=== PATIENT | female | born 1955 | race African-American/Black ===

== ENCOUNTER 2019-08-11 13:11 | Outpatient (CLI) | payer OTHER, SELFPAY ==
--- NOTE | ~2019-08-11 | XR_ITS ---
EXAMINATION: XR knee LT min 4V DATE: 08/11/2019 13:49 INDICATION: Posterior left knee pain. TECHNIQUE: 4 views of left knee were obtained. COMPARISON: None. FINDINGS: Bone alignment is normal. No fracture. There is moderate osteoarthritis of medial compartme nt and mild osteoarthritis of lateral and patellofemoral compartments. No knee joint effusion. IMPRESSION: 1. Moderate left knee osteoarthritis. Reviewed, dictated and finalized at location A. STRIAL TRAINING SPECIALIST
== END 2019-08-11 13:12 | disposition home or self-care (01) ==
DX: M25.562 Pain in left knee (principal); M17.12 Unilateral primary osteoarthritis, left knee
CPT/HCPCS: 73564

== ENCOUNTER 2020-01-27 13:03 | Outpatient (CLI) | payer OTHER, SELFPAY ==
--- NOTE | ~2020-01-27 | XR_ITS ---
XR chest 2V DATE: 01/27/2020 13:27 INDICATION: Chest pain, shortness of breath TECHNIQUE: PA and lateral views COMPARISON: 05/11/2015 PA and lateral chest FINDINGS: Normal heart size. Mild aortic tortuosity. No hilar or mediastinal enlargement. No pulmonary infiltrate or consolidation, pleural effusion or pulmonary vascular congestion or pneumo thorax is detected. Surgical clips overlying the upper abdomen are noted on the lateral view, likely due to cholecystecto my. Osteopenia. IMPRESSION: No active cardiopulmonary disease Reviewed, dictated and finalized at location A.
== END 2020-01-27 13:04 | disposition home or self-care (01) ==
PROVIDERS: PCP Family Medicine; Visit Provider Family Medicine
DX: R06.00 Dyspnea, unspecified (principal); R07.9 Chest pain, unspecified; R53.83 Other fatigue; R94.31 Abnormal electrocardiogram [ECG] [EKG]
CPT/HCPCS: 71046

== ENCOUNTER 2020-03-04 13:19 | Outpatient (CLI) | payer OTHER, SELFPAY ==
--- NOTE | 2020-03-04 13:35 | ECHO_ITS ---
Patient Info Name: Julia Martinez Age: 65 years : 1955 Gender: Female Ht: 62 in Wt: 210 lbs BSA: 2.09 m2 HR: 90 bpm BP: 141 / 93 mmHg Technical Quality: Fair Exam Date: 03/04/2020 1:41 PM Exam Location: [facility] Patient Status: Outpatient Admit Date: 03/04/2020 Staff Ordering Physician: Gordon Sarah DO Assembly Line Leader: Zoya Singer RDCS Attending Provider: Gordon Sarah DO Referring Physician: Tyrel BRO; Exam Type: CA echo doppler color flow Study Info Indications R06.00 - Dyspnea, unspecified Complete two-dimensional, color flow and Doppler transthoracic echocardiogram is performed. Summary 1. Complete two-dimensional, color flow and Doppler transthoracic echocardiogram is performed. 2. Left ventricular chamber dimension is normal. 3. Left ventricular systolic function is normal, estimated at 60-65%. 4. The left ventricular diastolic function is grade I diastolic dysfunction. 5. E/e' 12 is mildly elevated. 6. Global longitudinal strain is abnormal at -14.4%. 7. There is moderate aortic valve sclerosis. 8. No pulmonary hypertension, estimated pulmonary arterial systolic pressure is 23 mmHg. Left Ventricle E/e' 12 is mildly elevated. Global longitudinal strain is abnormal at -14.4%. Left ventricular chamber dimension is normal. Left ventricular systolic function is normal, estimated at 60-65%. The left ventricular diastolic function is grade I diastolic dysfunction. Right Ventricle Right ventricular chamber dimension is normal. Right ventricular systolic function is normal. Left Atria Left atrial chamber dimension is normal. Right Atria Right atrial chamber dimension is normal. Aortic Valve The aortic valve is trileaflet. There is moderate aortic valve sclerosis. There is no aortic valve stenosis. There is no aortic valve regurgitation. Pulmonic Valve There is no pulmonic regurgitation. Mitral Valve There is no mitral valve stenosis. There is no mitral valve regurgitation. Tricuspid Valve There is no tricuspid valve regurgitation. No pulmonary hypertension, estimated pulmonary arterial systolic pressure is 23 mmHg. Pericardium/Pleural There is no pericardial effusion. Inferior Vena Cava Normal inferior vena cava with >50% collapse upon inspiration consistent with normal right atrial pressure, 5 mmHg. Aorta The aortic root size at the sinus of Valsalva is normal. Left Ventricular Outflow Tract Name Value Normal LVOT 2D LVOT Diameter 1.9 cm LVOT Doppler LVOT Peak Gradient 6 mmHg LVOT Mean Gradient 3 mmHg LVOT VTI 21 cm LVOT VTI/AV VTI Ratio 0.9 LVOT Stroke Volume 58 ml LVOT CO 5.2 l/min LVOT CI 2.5 l/min/m2 Pulmonic Valve Name Value Normal APO
== END 2020-03-04 13:20 | disposition home or self-care (01) ==
PROVIDERS: PCP Family Medicine; Visit Provider Internal Medicine Cardiovascular Disease
DX: R06.00 Dyspnea, unspecified (principal); I35.8 Other nonrheumatic aortic valve disorders
CPT/HCPCS: 93306

== ENCOUNTER 2020-06-29 08:45 | Outpatient (CLI) | payer OTHER, SELFPAY ==
[2020-06-29 18:51] LABS: Basophils Absolute Auto 0.1 K/mm3 (0.0-0.1); Basophils Percent Auto 0.6 % (0.2-1.2); Eosinophils Absolute Auto 0.3 K/mm3 (0-0.3); Eosinophils Percent Auto 3.4 % (0-4.4); Hematocrit 42.8 % (37.0-47.0); Hemoglobin 12.6 g/dL (12.0-15.0); Immature Granulocyte Absolute 0.03 K/mm3 (0.00-0.031); Immature Granulocyte Percent A 0.3 % (0-0.5); Lymphocytes Absolute Auto 2.51 K/mm3 (0.9-3.2); Lymphocytes Percent Auto 28.7 % (18.3-44.2); Mean Corpuscular HGB Conc 29.4 g/dl (32-36); Mean Corpuscular Hemoglobin 23.7 pg (26-34); Mean Corpuscular Volume 80.6 fl (80-100); Monocytes Absolute Auto 0.7 K/mm3 (0.1-0.6); Monocytes Percent Auto 7.8 % (2.6-8.5); Neutrophils Absolute Auto 5.2 K/mm3 (1.3-6.7); Neutrophils Percent Auto 59.2 % (45.5-73.1); Platelet Count Result 309 k/mm3 (150-375); Red Blood Count 5.31 M/mm3 (4.2-5.4); White Blood Count 8.7 K/mm3 (4.5-10.0)
[2020-06-29 19:00] LABS: Alanine Aminotransferase 23 U/L (4-35); Albumin Level 4.1 g/dL (3.5-5.1); Alkaline Phosphatase 88 U/L (38-126); Anion Gap 5 mmol/L (8-16); Aspartate Amino Transferase 26 U/L (14-36); Bilirubin,Total 0.4 mg/dL (0.2-1.3); Blood Urea Nitrogen 18 mg/dL (7-17); Calcium 9.5 mg/dL (8.4-10.2); Carbon Dioxide 31 mmol/L (22-30); Chloride 104 mmol/L (98-107); Cholesterol 226 mg/dL (0-200); Estimated Glomerular Filt Rate > 60; Glucose 109 mg/dL (65-105); HDL Direct 73 mg/dL; Iron 31 ug/dL (37-170); Potassium 4.3 mmol/L (3.4-5.0); Sodium 140 mmol/L (137-145); Triglycerides 253 mg/dL (<150)
[2020-06-29 19:01] LABS: Cholesterol 225 mg/dL (0-200); HDL Direct 74 mg/dL; Triglycerides 252 mg/dL (<150)
[2020-06-29 19:07] LABS: Hypochromasia 2+ (NORMAL); Platelet Estimate Adequate (Adequate)
[2020-06-29 19:09] LABS: NT Pro B Type Natriuretic Pept 28 PG/ML (5-100); Ovalocytes 1+ (NORMAL); Percent Iron Saturation 6 % (20-50); Target Cells 1+ (NORMAL)
[2020-06-29 19:11] LABS: LDL Cholesterol Direct 33 mg/dL
[2020-06-29 19:12] LABS: LDL Cholesterol Direct 34 mg/dL
[2020-06-29 19:50] LABS: Vitamin D 25 Hydroxy 40.6 ng/mL
[2020-07-01 19:40] LABS: Erythropoietin (EPO) 22.8 mIU/mL (2.6-18.5)
[2020-07-04 08:17] LABS: Triiodothyronine T3 Free 2.5 pg/mL (2.3-4.2)
[2020-07-10 22:41] LABS: Thyroid Peroxidase Antibodies <1 IU/mL (<9)
== END 2020-06-29 08:46 | disposition home or self-care (01) ==
LOC: ANHBWCLAB 08:46
PROVIDERS: Internal Medicine Cardiovascular Disease; PCP Family Medicine; Visit Provider Family Medicine
DX: D49.7 Neoplasm of unspecified behavior of endocrine glands and other parts of nervous system (principal); E07.9 Disorder of thyroid, unspecified; R42 Dizziness and giddiness; Z82.62 Family history of osteoporosis; G25.81 Restless legs syndrome; D64.9 Anemia, unspecified; E16.2 Hypoglycemia, unspecified; E78.5 Hyperlipidemia, unspecified; G47.10 Hypersomnia, unspecified; I10 Essential (primary) hypertension; R89.9 Unspecified abnormal finding in specimens from other organs, systems and tissues; Z79.899 Other long term (current) drug therapy
CPT/HCPCS: 36415; 80053; 80061; 82306; 82668; 82728; 83540; 83550; 83880; 84443; 84481; 85025; 86376

== ENCOUNTER 2020-07-01 12:11 | Outpatient (CLI) | payer OTHER, SELFPAY ==
--- NOTE | ~2020-07-01 | MR_ITS ---
EXAMINATION: MR brain/brain stem wo/w con DATE: 07/01/2020 14:10 INDICATION: Benign neoplasm of pituitary gland. TECHNIQUE: Magnetic resonance imaging (MRI) of the brain and brainstem was performed without and with 20 mL MultiHance intravenous contrast. Whole-brain sequences included sagittal T1-weighted FSE, axia l diffusion-weighted FS EPI, axial T2*-weighted GRE, axial T2-weighted FLAIR Propeller, and axial T2- weighted Propeller. Small wjiui-ko-vnes sequences included sagittal and coronal T1-weighted FSE cente red at the pituitary. Postcontrast sequences included small [id number]-iz-akcr coronal T1-weighted FSE in a time course and sagittal T1-weighted FSE and whole-brain axial T1-weighted FSE. Apparent diffusion coefficient (ADC) maps were created. COMPARISON: Brain MRI 10/27/2009 FINDINGS: The pituitary is normal in size with height of 3 mm and concave superior margin. There is n o intracranial hemorrhage or acute infarction. There is an 8 x 6 x 5 mm enhancing extra-axial mass wi th dural tails at the planum sphenoidale, consistent with a meningioma. The ventricles are normal in size. The mastoid air cells are normal. There is mild mucosal thickening in the paranasal sinuses. Th ere are likely changes of ocular lens replacement surgeries. IMPRESSION: 1. 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 2. No pituitary tumor recurrence. Reviewed, dictated and finalized at location A. ANOTHERAPIST
== END 2020-07-01 12:12 | disposition home or self-care (01) ==
LOC: ANHIMG 12:26
PROVIDERS: PCP Family Medicine; Visit Provider Family Medicine
DX: D35.2 Benign neoplasm of pituitary gland (principal); R51.9 Headache, unspecified
CPT/HCPCS: 70553; A9577

== ENCOUNTER 2021-01-18 13:38 | Emergency (ER) | payer MEDICARE, SELFPAY ==
--- NOTE | ~2021-01-18 | CT_ITS ---
EXAMINATION: CTA chest PE protocol DATE: 01/18/2021 16:55 INDICATION: Shortness of breath and tachycardia TECHNIQUE: Computed tomography angiography (CTA) of the chest was performed with 100 mL Omnipaque-350 intravenous contrast timed to evaluate the pulmonary arteries. Coronal maximum intensity projection 3D-reconstructions were created by the technologist. The dose-length product (DLP) was 910.49 mGy-cm. Automated exposure control and iterative reconstruction technique were employed. COMPARISON: 07/04/2011 FINDINGS: The pulmonary arteries are well-opacified. No pulmonary embolism is identified. There is mi ld emphysema. The lungs are free of acute opacities. There is no pleural effusion or pneumothorax. No pathologically enlarged thoracic lymph nodes are identified. The heart size is normal. There is mild thoracic spondylosis. The gallbladder is surgically absent. IMPRESSION: 1. No pulmonary embolism or acute cardiopulmonary abnormality. 2. Mild emphysema. Reviewed, dictated and finalized at location A.
--- NOTE | ~2021-01-18 | XR_ITS ---
EXAMINATION: XR chest 2V DATE: 01/18/2021 14:40 INDICATION: Heart palpitations, controlled hypertension TECHNIQUE: AP and lateral views of the chest are obtained. COMPARISON: 01/27/2020 FINDINGS: The lungs are free of acute opacities. There is no pleural effusion or pneumothorax. The ca rdiomediastinal silhouette is normal. There is moderate thoracic spondylosis. IMPRESSION: 1. No acute cardiopulmonary abnormality. Reviewed, dictated and finalized at location A.
--- NOTE | 2021-01-18 13:42 | ECG_ITS ---
Measurements Intervals [place] Rate: 102 P: 18 OK: 136 QRS: 45 QRSD: 87 T: 8 QT: 311 QTc: 405 Interpretive Statements SINUS TACHYCARDIA MINIMAL Q WAVES- INFERIOR LEADS BORDERLINE ST-T WAVE ABNORMALITY- DIFFUSE LEADS BASELINE WANDER- I, II BORDERLINE ECG Electronically Signed On 01-18-2021 14:10:05 CDT by Gordon Sarah D.O.
[2021-01-18 13:52] VITALS: BP 145/84; PULSE 101; RESP 16; TEMP 36.8; O2SAT 99
[2021-01-18 14:22] LABS: Basophils Percent Auto 0.5 % (0.2-1.2); Eosinophils Absolute Auto 0.2 K/mm3 (0-0.3); Eosinophils Percent Auto 2.6 % (0-4.4); Hematocrit 43.8 % (37.0-47.0); Hemoglobin 13.4 g/dL (12.0-15.0); Immature Granulocyte Absolute 0.03 K/mm3 (0.00-0.031); Immature Granulocyte Percent A 0.3 % (0-0.5); Lymphocytes Absolute Auto 2.46 K/mm3 (0.9-3.2); Lymphocytes Percent Auto 28.6 % (18.3-44.2); Mean Corpuscular HGB Conc 30.6 g/dl (32-36); Mean Corpuscular Hemoglobin 24.7 pg (26-34); Mean Corpuscular Volume 80.7 fl (80-100); Monocytes Absolute Auto 0.6 K/mm3 (0.1-0.6); Monocytes Percent Auto 7.4 % (2.6-8.5); Neutrophils Absolute Auto 5.2 K/mm3 (1.3-6.7); Neutrophils Percent Auto 60.6 % (45.5-73.1); Platelet Count Result 294 k/mm3 (150-375); Red Blood Count 5.43 M/mm3 (4.2-5.4); Red Cell Distribution Width 19.3 % (11.5-14.5); White Blood Count 8.6 K/mm3 (4.5-10.0)
[2021-01-18 14:32] LABS: INR 0.9; Prothrombin Time 11.8 Seconds (11.1-14.7)
[2021-01-18 15:04] LABS: Troponin I < 0.012 ng/mL (0.000-0.034)
--- NOTE | 2021-01-18 16:04 | ED.ARRPALP ---
HPI - Arrhythmia/Palpitations General Chief Complaint: Arrhythmia/Palpitations Stated Complaint: Feels like heart is flipping x 2 weeks Time Seen by Provider: 01/18/21 14:35 History of Present Illness HPI narrative: Patient presents with concerns for palpitation. She reports symptoms been present for the past couple weeks she describes the sensation of her heart is in her throat. She is unable to identify any clear aggravating or alleviating factors. Symptoms appear to come on randomly last for a few seconds and resolved. She denies any associated nausea, vomiting, dyspnea, chest pain Related Data Home Medications Medication Instructions Recorded Confirmed cetirizine [Zyrtec] 10 mg PO DAILY 05/05/19 09/27/20 hydrochlorothiazide 25 mg PO QAM 05/05/19 09/27/20 meclizine 25 mg PO DAILY 05/05/19 09/27/20 omeprazole 20 mg PO DAILY 05/05/19 09/27/20 carboxymethylcellulose sodium 1 % 1 drop EACH EYE BID 12/26/19 09/27/20 eye liquid gel drops omega-3 fatty acids 1,000 mg 1,000 mg PO BID 02/02/20 09/27/20 capsule cholecalciferol (vitamin D3) 50 50 mcg PO DAILY 02/06/20 09/27/20 mcg (2,000 unit) capsule multivitamin 1 tablet PO DAILY 02/06/20 09/27/20 Allergies Allergy/AdvReac Type Severity Reaction Status Date / Time bismuth subsalicylate Allergy Unknown HIVES Verified 01/18/21 13:58 codeine Allergy Unknown Itching Verified 01/18/21 13:58 fenofibrate Allergy Unknown felt Verified 01/18/21 13:58 strange after taking Penicillins Allergy Unknown Anaphylaxis Verified 01/18/21 13:58 Gsswwbc-Brg-Zms Reductase Allergy Unknown MUSC ACHES Verified 01/18/21 13:58 Inhibitor tiotropium Allergy Unknown eye itching Verified 01/18/21 13:58 venlafaxine Allergy Unknown Difficulty Verified 01/18/21 13:58 Breathing BUSPIRONE HCL Allergy Unknown PALPITATION Uncoded 09/27/20 16:20 S CHOLINE FENOFIBRATE Allergy Unknown FELT Uncoded 09/27/20 16:20 BAD , MUSCLE ACHES, DISCOMFORT Review of Systems Review of Systems: CONSTITUTIONAL: Denies fever, chills, or sweats. EYES: Denies visual changes, redness, or discharge. ENT: Denies rhinorrhea, congestion, sore throat, or otalgia. CARDIOVASCULAR: Denies chest pain, or edema. RESPIRATORY: Denies cough or dyspnea. GASTROINTESTINAL: Denies abdominal pain, nausea, vomiting, or diarrhea. GENITOURINARY: Denies dysuria or hematuria. SKIN: Denies rash or itching. MUSCULOSKELETAL: Denies back pain, joint pain, or myalgia. NEUROLOGIC: Denies headache, numbness, dizziness, or weakness. PSYCHIATRIC: Denies anxiety or depression. All systems reviewed & are unremarkable except as noted in HPI and below PMFSH Past Medical History Medical History (Updated 01/18/21 @ 17:32 by Henrry Vergara MD) COPD (chronic obstructive pulmonary disease) Ovarian cyst Pituitary tumor Thyroid disease Vertigo Surgical History Surgical History H/O toe surgery H/O tubal ligation History of appendectomy Hx of cholecystectomy Family History Family History Sibling Family history of hypothyroidism Mother Family history of diabetes mellitus in first degree relative Social History Social History Smoking packs per day: 0.5 Smoking cigarettes per day: 10.0 Years smoked: 4 Smoking pack-years: 2.00 Smoking status: Former smoker Smoking end date: 06/18/10 Alcohol intake: former Substance use type: does not use Exam Narrative: GENERAL: Well-appearing, well-nourished, and in no acute distress. HEAD: Normocephalic, atraumatic. EYES: PERRLA and EOMI. ENT: Nares clear, no rhinorrhea or epistaxis. Mucous membranes moist. NECK: Supple. No adenopathy or masses. No JVD CHEST: Clear to auscultation. No respiratory distress. No wheezes rales or rhonchi HEART: Regular rate and rhythm. No murmur heard. Marta
[2021-01-18 16:24] LABS: Thyroid Stimulating Hormone 0.621 uIU/mL (0.465-4.680)
[2021-01-18 16:36] LABS: Alanine Aminotransferase 21 U/L (4-35); Albumin Level 4.4 g/dL (3.5-5.1); Alkaline Phosphatase 71 U/L (38-126); Anion Gap 11 mmol/L (8-16); Aspartate Amino Transferase 31 U/L (14-36); Bilirubin,Total 0.6 mg/dL (0.2-1.3); Blood Urea Nitrogen 24 mg/dL (7-17); Carbon Dioxide 27 mmol/L (22-30); Chloride 100 mmol/L (98-107); Estimated CRCL calculation 56 ml/min; Estimated Glomerular Filt Rate > 60; Glucose 101 mg/dL (65-110); Potassium 3.8 mmol/L (3.4-5.0); Sodium 138 mmol/L (137-145)
[2021-01-18 16:42] LABS: NT Pro B Type Natriuretic Pept 19 pg/mL (5-100)
[2021-01-18 17:15] VITALS: BP 120/78; PULSE 95; RESP 13; O2SAT 98
[2021-01-18 17:45] LABS: Troponin I < 0.012 ng/mL (0.000-0.034)
[2021-01-18 17:56] VITALS: BP 120/78; PULSE 93; RESP 16; TEMP 36.7; O2SAT 100
== END 2021-01-18 17:57 | disposition home or self-care (01) ==
PROVIDERS: Emergency Medicine; Emergency Provider Emergency Medicine; PCP Nurse Practitioner Family
DX: R00.2 Palpitations (principal); J43.9 Emphysema, unspecified; E07.9 Disorder of thyroid, unspecified; R00.0 Tachycardia, unspecified; Z87.891 Personal history of nicotine dependence; R94.31 Abnormal electrocardiogram [ECG] [EKG]
CPT/HCPCS: 36415; 71046; 71275; 80048; 80076; 83880; 84443; 84484; 85025; 85610; 85730; 93005; 99284; Q9967

== ENCOUNTER 2021-03-04 07:30 | Outpatient (CLI) | payer MEDICARE, SELFPAY | END 2021-03-04 07:31 | disposition home or self-care (01) | LOC: ANHAUDIO 07:32 | PROVIDERS: PCP Nurse Practitioner Family; Visit Provider Nurse Practitioner Family | DX: R42 Dizziness and giddiness (principal) | CPT/HCPCS: 92540; 92546; 92557; 92567 ==

== ENCOUNTER 2022-09-18 09:40 | Outpatient (CLI) | payer MEDICARE, SELFPAY ==
--- NOTE | ~2022-09-18 | MR_ITS ---
EXAMINATION: MR brain/brain stem wo/w con DATE: 09/18/2022 10:46 INDICATION: Benign neoplasm of the pituitary gland. TECHNIQUE: Magnetic resonance imaging (MRI) of the brain and brainstem was performed without and with 20 mL MultiHance intravenous contrast. COMPARISON: Brain MRI 07/01/2020 FINDINGS: The pituitary is normal in size with height of 4 mm and concave superior margin. There is a 7 x 4 x 8 mm enhancing mass at the anterior rim of the sella, consistent with a meningioma. There ar e scattered areas of nonspecific increased T2-weighted signal intensity in the cerebral white matter, which is within normal limits for the patient's age. There is no intracranial hemorrhage or acute in farction. The ventricles are normal in size. There is mild mucosal thickening in the paranasal sinuse s. The mastoid air cells are normal. There are likely changes of ocular lens replacement surgeries. IMPRESSION: 1. Stable 8 mm planum sphenoidale meningioma. Reviewed, dictated and finalized at location A.
== END 2022-09-18 09:41 | disposition home or self-care (01) ==
PROVIDERS: PCP Nurse Practitioner Family; Visit Provider Nurse Practitioner Family
DX: D35.2 Benign neoplasm of pituitary gland (principal); D32.0 Benign neoplasm of cerebral meninges
CPT/HCPCS: 70553; A9577